=== PATIENT | female | born 1970 | race Caucasian/White ===

== ENCOUNTER 2017-01-18 10:00 | Inpatient (IN) | payer OTHER ==
[~2017-01-18] VITALS: Ht 167.6 cm; Wt 81.6 kg
--- NOTE | ~2017-01-18 | PN ---
Unit #: [id number] #: [id number] Patient: KAN SALCIDO [id number] [facility] [address] [place] [address] [id number] MR#: [id number] NAME: KAN SALCIDO ROOM: [facility] [place] Age: 46 Sex: F Admission Date: 01/18/2017 : 1970 Attending Physician: Mitchell Farley M.D. Admitting Physician: Mitchell Farley M.D. Primary Care Physician: Generic Doctor Not In System [facility] PROGRESS NOTES DATE 01/20/2017 DISCUSSION Ms. Salcido is a 46-year-old white female who was seen today and chart was reviewed and case was discussed with the staff. She has been anxious, withdrawn and rather seclusive to herself. Meanwhile, she has been cooperative with treatment recommendations and has been taking medications and tolerating them fairly well with no reported side effects. MENTAL STATUS EXAMINATION Middle-aged white female who was casually dressed with fair personal hygiene and appears to be in no acute distress or discomfort. She was awake and alert with impaired attention and concentration. Her mood was anxious with congruent affect. Her speech is slow and restricted in content. She denies any suicidal or homicidal ideation and also denies any auditory or visual hallucinations. Her insight and judgement remains slightly impaired. TREATMENT PLAN 1. Will continue on current medications and treatment protocol. Will monitor her response and make further adjustments as needed. 2. Will continue to follow up. Dictated by... Nishi Ventura/stewart TD: 01/20/2017 16:04 JOB #: [id number] Unit #: [id number] #: [id number] Patient: KAN SALCIDO PROGRESS NOTES Page 1 of 1 X Mitchell Farley MD PROGRESS NOTE
--- NOTE | ~2017-01-18 | HP ---
Unit #: [id number] #: [id number] Patient: NAKIA SALCIDO [id number] [place] [address] [id number] I MR#: [id number] NAME: NAKIA SALCIDO ROOM: 61 Age: 46 Sex: F Admission Date: 01/18/2017 : 1970 Attending Physician: Mitchell Farley M.D. Admitting Physician: Mitchell Farley M.D. Primary Care Physician: Generic Doctor Not In System HISTORY AND PHYSICAL HISTORY OF PRESENT ILLNESS Nakia is a 46 year old admitted to [facility] with depression verbalizing wanting to hurt herself. PAST MEDICAL HISTORY 1. 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 She has been clean for some months. 2. Hepatitis C. 3. High blood pressure. 4. Obesity. PAST SURGICAL HISTORY Tubal ligation. ALLERGIES No known drug allergies. SOCIAL HISTORY Smokes one-half packs per day. Denies alcohol. Admits to a history of illicit substance abuse to include IV heroin, meth and spice. FAMILY HISTORY Medically noncontributory. REVIEW OF SYSTEMS CONSTITUTIONAL: No fever or chills. HEENT: Denies any sore throat, ear pain or runny nose. CARDIOVASCULAR: Denies chest pain, irregular heart rhythm or palpitations. CHEST: Denies shortness of breath or cough. No hemoptysis. GASTROINTESTINAL: Denies nausea, vomiting, diarrhea or chronic constipation. ENDOCRINE: Denies history of increased thirst or urination. No recent significant weight loss or gain. GENITOURINARY: Denies dysuria, frequency, or hematuria. SKIN: Denies any rashes. HEMATOLOGIC: Denies history of increased bleeding or bruising. MUSCULOSKELETAL: Denies any hot, swollen joints. No generalized muscle pain. NEUROLOGIC: Denies problems with vision or speech. No frequent, severe headaches. No numbness, tingling or weakness in any extremities. Denies loss of bladder or bowel control. Unit #: [id number] #: [id number] Patient: NAKIA SALCIDO CURRENT MEDICATIONS 1. Protonix 40 mg daily 2. Seroquel 100 mg q h.s. 3. Catapres 0.1 mg b.i.d. 4. Klonopin 0.25 mg b.i.d. 5. Milk of Magnesia p.r.n. 6. Maalox p.r.n. 7. Tylenol p.r.n. 8. Neurontin 800 mg t.i.d. 9. Nicotine patch 14 mg q day 10. Prozac 20 mg q day PHYSICAL EXAMINATION GENERAL: Alert, obese, in no apparent distress. VITAL SIGNS: Blood pressure 124/74, heart rate 80, respirations 16, temperature 98.6. WEIGHT: 200 pounds. HEIGHT: 5'8". SKIN: Warm and dry without rash or lesion. HEENT: Normocephalic. TMs not viewed. Oral and nasal passages clear. Conjunctivae clear. Pupils equal, round and reactive to light and accommodation. Extraocular movements intact. NECK: Supple without lymphadenopathy or thyromegaly. HEART: Regular rate and rhythm without murmur. LUNGS: Clear. ABDOMEN: Soft, nontender. : Not done. EXTREMITIES: No evidence of cyanosis, clubbing or edema. Moves all extremities without focal deficit. NEUROLOGICAL: Grossly within normal limits. Cranial Nerves: II: Visual locke are intact. III, IV AND : Extraocular movements are intact. Pupils are equal, round and reactive to light. V: Facial sensation is grossly normal. VII: Facial movements and expression are normal. VIII: Auditory acuity grossly intact. IX, X: Uvula is midline. Phonation is normal. XI: Patient shrugs shoulders and turns head normally. XII: Tongue protrudes in the midline. Sensory and Motor Function: Sensory and motor sensation is grossly normal. Motor: moves all extremities well. Coordination: Gait is normal. Deep Tendon Reflexes: Intact. IMPRESSION Psychiatric admission RECOMMENDATIONS PSYCHIATRIC: Per psychiatrist. MEDICAL: I see no contraindications to participating in facility's activities. MEDICAL PROGNOSIS Good. MEDICAL CONDITION Stable. Unit #: [id number] #: [id number] Patient: NAKIA SALCIDO Dictated by... Mary Cooper P.A.-C. for Nishi Fernandes/farhad TD: 01/18/2017 22:32 JOB #: [id number] HISTORY AND PHYSICAL Page 1 of 1 X Mary Cooper HISTORY AND PHYSICAL
--- NOTE | ~2017-01-18 | PA ---
Unit #: [id number] #: [id number] Patient: [facility]CIDO [id number] [facility] [address] [place] [address] [id number] I MR#: [id number] NAME: KAN SALCIDO ROOM: P261 Age: 46 Sex: F Admission Date: 01/18/2017 : 1970 Date of Assessment: 01/18/2017 Attending Physician: Mitchell Farley M.D. Admitting Physician: Mitchell Farley M.D. Primary Care Physician: Generic Doctor Not In System PSYCHIATRIC ASSESSMENT DATE OF SERVICE 01/18/2017. IDENTIFYING DATA Ms. Salcido is a 46-year-old single white female, who is a resident of [place], [place], and was transferred to from [facility] Emergency Room. CHIEF COMPLAINT "Suicidal thoughts." HISTORY OF PRESENT ILLNESS Ms. Salcido is a 46-year-old white female, who presented to the [facility] Emergency Room, stating that she has been staying at a [facility] and she has been trying to leave, but they would not let her leave and the facility will call places where she is staying and get her in trouble and the patient reports history of mental health issues and has long history of chemical dependency issues and has [facility] and refuses to follow up with any treatment program and usually is seeking pain medication and reports she does not have a family doctor or a pain doctor, but that she has been going to emergency room and getting Lortab and that she came to the ER because she was exhausted and that she told the ER staff that she wanted to kill herself, but she stated that she now feels fine. She was seen to be quite attention seeking, histrionic, and overall poor historian and reports that she has attempted suicide twice in her life with the last time back in 2000 and that is when she overdosed on pills and cut her wrist. She does report feelings of hopelessness and helplessness, and suicidal ideation and as such, recommendation for inpatient level of care for safety and stabilization was made and the patient was transferred to us. SUBSTANCE ABUSE HISTORY The patient reports history of cocaine and amphetamine and opioid abuse, and has been currently seeking opioids from different providers and locations, particularly going to the emergency room. PAST PSYCHIATRIC HISTORY The patient has had history of multiple inpatient psychiatric hospitalizations at [facility] and has been diagnosed and treated for mood disorder and supposed to be on Seroquel and Prozac, though it is not clear if she has been compliant with medications as she does not have an outpatient provider. Unit #: [id number] #: [id number] Patient: KAN SALCIDO PAST MEDICAL HISTORY No acute or chronic medical illnesses. ALLERGIES No known medication allergies. PERSONAL AND SOCIAL HISTORY A 46-year-old white female, who reports that she is single, unemployed, and essentially homeless and has been staying at a [facility] house. MENTAL STATUS EXAMINATION Middle-aged white female who was casually dressed with fair personal hygiene, appears to be in no acute distress or discomfort. She was awake and alert on interaction with intact orientation to time, place, and person. Her mood was anxious and depressed with a congruent affect. Her speech was slow and restricted in content. Her thought processes were disorganized with looseness of associations and flight of ideas. Her insight and judgment remain significantly impaired. DIAGNOSTIC IMPRESSION Psychiatric: Major depressive disorder, recurrent, moderate, without psychotic features. Medical: None. Stressors: Moderate psychosocial stressors. TREATMENT PLAN 1. The patient has presented with history of mood disorder, and has been decompensating and will need inpatient hospitalization for safety and stabilization. We will start her back on her home medications. We will adjust the medications and monitor response. 2. Supportive therapy was provided to the patient. 3. Safe, structured, and nourishing environment will be provided. ESTIMATED LENGTH OF STAY 5 to 7 days. ABILITY TO HELP SELF Limited. WILLINGNESS TO HELP SELF The patient appears to be willing to help self. STRENGTHS 1. Communicative. 2. Cooperative. PROBLEMS 1. Chronic dysphoric symptoms. 2. Poor social support system. DISCHARGE CRITERIA This will be contingent upon the patient's ability to show resolution of her depression and anxiety and her ability to stay safe to herself, particularly after discharge from the hospital. Dictated by... Unit #: [id number] #: [id number] Patient: KAN SALCIDO Nishi Ventura/zach TD: 01/20/2017 01:48 JOB #: [id number] PSYCHIATRIC ASSESSMENT Page 1 of 1 X Mitchell Farley MD PSYCHIATRIC ASSESSMENT
--- NOTE | ~2017-01-18 | DS ---
Unit #: [id number] #: [id number] Patient: KAN SALCIDO [id number] [facility] [place] [address] [id number] I MR#: [id number] NAME: KAN SALCIDO ROOM: 61 Age: 46 Sex: F Admission Date: 01/18/2017 : 1970 Discharge Date: 01/21/2017 Attending Physician: Mitchell Farley M.D. DISCHARGE SUMMARY IDENTIFYING DATA Ms. Salcido is a 46-year-old single white female, who is a resident of [place], [place], and was transferred to us from [facility] with chief complaint of suicidal thoughts. DISCHARGE DIAGNOSES Psychiatric major depressive disorder, recurrent, moderate, without psychotic features. Medical; none. Stressors; Moderate to psychosocial stressors. HISTORY OF PRESENT ILLNESS Please see initial psychiatric evaluation for details. PAST PSYCHIATRIC HISTORY Please see initial psychiatric evaluation for details. PAST MEDICAL HISTORY Please see initial psychiatric evaluation for details. HOSPITAL COURSE The patient [facility] and was oriented to the hospital environment. Routine p.r.n. medications were initiated and upon initial presentation, she was seen to be very agitated, irritable, strongly has been trying to mask and minimize her presentation, refusing to stay in treatment and wanting to side out and was not actively participating in treatment although seen to be intimidating and using verbally abusive language and was hostile and irritable; however, medications were started back and she was encouraged to participate in therapy groups and she was slowly able to calm herself down and then was apologetic of her attitude from before and was denying any suicidal ideations, intent, or plan and was willing to continue treatment with intensive outpatient [facility] and as such, it was decided that she will be discharged home and will continue treatment on an outpatient basis. DISCHARGE MEDICATIONS Prozac 20 mg a day for depression, Catapres 0.1 mg b.i.d. for anxiety, Seroquel 100 mg at bedtime for depression, Neurontin 800 mg t.i.d. for anxiety. DISCHARGE CONDITION Unit #: [id number] #: [id number] Patient: KAN SALCIDO Stable. PROGNOSIS Fair. Dictated by... Nishi Ventura/zach TD: 01/22/2017 11:20 JOB #: [id number] DISCHARGE SUMMARY Page 1 of 1 X Mitchell Farley MD DISCHARGE SUMMARY
[2017-01-19 09:56] LABS: URINE APPEARANCE CLEAR; URINE BILIRUBIN NEG (NEG); URINE BLOOD TRACE (NEG); URINE COLOR YELLOW; URINE GLUCOSE NEG (NEG); URINE KETONE NEG (NEG); URINE LEUKOCYTE ESTERASE TRACE (NEG); URINE NITRATE NEG (NEG); URINE PROTEIN NEG (NEG); URINE SPECIFIC GRAVITY 1.007 (1.003-1.035); URINE UROBILINOGEN 0.2 MG/DL (NEG)
[2017-01-19 10:01] LABS: URBCS1 AUWI 0-2 /[HPF] (0-2); URINE BACTERIA AUWI NEG (NEGATIVE); URINE SQUAMOUS EPITHELIAL CELL OCC /[HPF]; UWBCS1 AUWI 0-2 (0-5)
== END 2017-01-21 12:45 | disposition home or self-care (01) | DRG 885 ==
LOC: P2L 13:39
PROVIDERS: Psychiatry & Neurology Psychiatry
DX: F33.1 Major depressive disorder, recurrent, moderate (principal); R45.851 Suicidal ideations; Z59.0 Homelessness; Z86.19 Personal history of other infectious and parasitic diseases; Z98.51 Tubal ligation status; F17.210 Nicotine dependence, cigarettes, uncomplicated
CPT/HCPCS: 81003; 84703

== ENCOUNTER 2017-02-21 14:53 | Inpatient (IN) | payer OTHER ==
[~2017-02-21] VITALS: Ht 172.7 cm; Wt 81.6 kg
--- NOTE | ~2017-02-21 | PN ---
Unit #: [id number] #: [id number] Patient: KAN SALCIDO [id number] [facility] [address] [place] [address] [id number] I MR#: [id number] NAME: KAN SALCIDO ROOM: [facility] Age: 46 Sex: F Admission Date: 02/21/2017 : 1970 Attending Physician: Mitchell Farley M.D. Admitting Physician: Mitchell Farley M.D. Primary Care Physician: Generic Doctor Not In System [facility] PROGRESS NOTES DATE OF SERVICE 02/24/2017 DISCUSSION Ms. Salcido is a 46-year-old white female with mood disorder and psychosis who was seen today. Chart was reviewed and case was discussed with the staff. She has been anxious and had a rough day yesterday with acute psychotic (1) __. Staff called me stating that the patient was getting delusional, agitated, and hostile and had to be moved to a different floor and has been transferred to private video-monitored room. She continues to (2) __ bizarre behavior and believed that she is leaving today and appears to be quite unstable at this time. MENTAL STATUS EXAMINATION Middle-aged white female who is casually dressed with fair personal hygiene, appears to be in no acute distress or discomfort. She was awake and alert with impaired attention and concentration. Her mood is anxious with congruent affect. Her speech is slow and tangential. Thought processes were disorganized with some looseness of associations and flight of ideas. Her insight and judgment remain significantly impaired. TREATMENT PLAN 1. We will continue her on her current medications and treatment protocol. We will monitor her response to medications and make further adjustments as needed. 2. We will continue to follow up. Dictated by... Mitchell Farley M.D. IAA/bzg TD: 02/24/2017 08:41 JOB #: [id number] Unit #: [id number] #: [id number] Patient: KAN SALCIDO PROGRESS NOTES Page 1 of 1 X Mitchell Farley MD X PROGRESS NOTE
--- NOTE | ~2017-02-21 | HP ---
Unit #: [id number] #: [id number] Patient: KAN SALCIDO [id number] [facility] [address] [place] [address] [id number] I MR#: [id number] NAME: KAN SALCIDO ROOM: [facility] Age: 46 Sex: F Admission Date: 02/21/2017 : 1970 Attending Physician: Mitchell Farley M.D. Admitting Physician: Mitchell Farley M.D. Primary Care Physician: Generic Doctor Not In System HISTORY AND PHYSICAL HISTORY OF PRESENT ILLNESS The patient is a 46-year-old female who has been [facility] ideation and detox. PAST MEDICAL HISTORY 1. Chronic back pain. 2. Chronic sciatica. 3. GERD. 4. Hepatitis C. 5. Hypertension. 6. Withdrawal seizures. PAST SURGICAL HISTORY Tubal ligation. ALLERGIES No known allergies. SOCIAL HISTORY Patient endorses tobacco and endorses polysubstance abuse including IV heroin, meth and spice. She denies any alcohol use. FAMILY HISTORY Medically noncontributory. REVIEW OF SYSTEMS CONSTITUTIONAL: Patient denies fever or chills. HEENT: Denies sore throat, ear pain or runny nose. CARDIOVASCULAR: Denies chest pain, irregular heart rhythm or palpitations. CHEST: Denies shortness of breath or cough. No hemoptysis. GASTROINTESTINAL: Denies nausea, vomiting, diarrhea or chronic constipation. ENDOCRINE: Denies increased thirst or urination. Denies recent weight loss or gain. GENITOURINARY: Denies frequency, or hematuria. SKIN: Denies rashes. HEMATOLOGIC: Denies increased bleeding or bruising. MUSCULOSKELETAL: Denies hot, swollen joints. No generalized muscle pain. NEUROLOGIC: Denies problems with speech, vision, numbness, tingling. Denies loss of bowel or bladder control. HOME MEDICATIONS 1. Seroquel 100 mg p.o. at night. Unit #: [id number] #: [id number] Patient: KAN SALCIDO 2. Neurontin 800 mg p.o. t.i.d. 3. Prozac 20 mg p.o. daily. 4. Clonidine 0.1 mg p.o. b.i.d. 5. Protonix 40 mg p.o. daily. PHYSICAL EXAMINATION GENERAL: She is awake, alert, in no acute distress. VITAL SIGNS: Temperature 98.3, heart rate 74, respirations 16, blood pressure 139/96. HEIGHT: 5 feet 8. WEIGHT: 180 pounds. HEENT: Head is atraumatic, normocephalic. Pupils equal, round and reactive. Extraocular movements are intact. No drainage from ears or nares. NECK: Supple. Trachea is midline. HEART: Regular rate and rhythm. LUNGS: Clear. ABDOMEN: Soft, nontender, nondistended. : Not done. SKIN: Warm, dry without any unusual rashes or lesions. EXTREMITIES: No clubbing, edema or cyanosis. NEUROLOGICAL: Cranial nerves II through XII intact. No focal deficits. Sensory and motor functioning grossly normal. Moves all extremities well. Coordination, gait normal. Deep tendon reflexes intact. IMPRESSION Psychiatric admission. RECOMMENDATIONS PSYCHIATRIC: Will be per psychiatry. MEDICAL: I see no contraindication to participate in facility's activities. MEDICAL PROGNOSIS Fair. MEDICAL CONDITION Stable. Dictated by... Omaira Velazquez A.P.R.N. for Harriett Gomez M.D. AM/stewart TD: 02/22/2017 17:39 JOB #: [id number] Unit #: [id number] #: [id number] Patient: KAN SALCIDO HISTORY AND PHYSICAL Page 1 of 1 X Omaira Velazquez [employer] X HISTORY AND PHYSICAL
--- NOTE | ~2017-02-21 | PA ---
Unit #: [id number] #: [id number] Patient: KAN SALCIDO [id number] [facility] [address] [place] [address] [id number] I MR#: [id number] NAME: KAN SALCIDO ROOM: P205 Age: 46 Sex: F Admission Date: 02/21/2017 : 1970 Date of Assessment: 02/22/2017 Attending Physician: Mitchell Farley M.D. Admitting Physician: Mitchell Farley M.D. Primary Care Physician: Generic Doctor Not In System PSYCHIATRIC ASSESSMENT DATE OF SERVICE 02/22/2017 IDENTIFYING DATA Ms. Salcido is a 46-year-old single white female, who is a resident of [place], [place], and is very well known to us from previous multiple encounters and was transferred back to us from [facility] Emergency Room where she brought herself on a voluntary basis. CHIEF COMPLAINT "I want to kill myself." HISTORY OF PRESENT ILLNESS Ms. Salcido is a 46-year-old white female with a history of mood disorder and substance abuse, who has been a frequent flyer to inpatient hospitalizations, and each time she comes in, she shows a very negative attitude, and pushes and wants to leave as soon as she starts feeling better and does not invest in treatment at all and then refuses to cooperate with any treatment recommendations outside of the hospital and usually ends up leaving on a negative note. However, she took herself back to the emergency room at [facility] after she was under my care last month and told me during that time that I would never see her back in the hospital and that she is just ready to sign herself out. However, at this time, she presented to the emergency room stating that she relapsed a little over a week ago and "It's like I can't stop using. People don't seem to think I deserve help. But then, I'm serious when I say I want to stop because I can't stop using." The patient reports that she is addicted to spice and before she continues chasing this addiction, she will run into traffic or whatever else she has to do to stop feeling the way she is feeling. The patient reports " I can't do this anymore. I can't tell things and I don't deserve to live." She does endorse increasing depression, anxiety, feelings of hopelessness and helplessness, and suicidal ideation with intent and plan, and as such, recommendation for inpatient level of care for safety and stabilization was made and the patient was transferred to us. SUBSTANCE ABUSE HISTORY The patient reports a history of cocaine and amphetamines and synthetic drug abuse, and more recently, appears that synthetic spice has been her drug of choice. PAST PSYCHIATRIC HISTORY The patient has had a history of multiple inpatient psychiatric Unit #: [id number] #: [id number] Patient: KAN SALCIDO hospitalizations at [facility] and has been diagnosed and treated for mood disorder on the line of bipolar, and review of the medical records indicates that she is supposed to be on Seroquel and Prozac, but does not appear to be compliant with the medication as she is not active with any ongoing outpatient psychiatric treatment, is not seeing a psychiatrist, and is not taking any psychotropic medications. PAST MEDICAL HISTORY The patient's medical history is insignificant. ALLERGIES No known medication allergies. PERSONAL AND SOCIAL HISTORY A 46-year-old white female, who reports that she is single, unemployed and lives alone, and has poor social support system. MENTAL STATUS EXAMINATION A middle-aged white female, who was casually dressed with a fair personal hygiene and appears to be in no acute distress or discomfort. She was awake and alert on interaction with intact orientation to time, place, and person. Her mood was anxious and depressed with a congruent affect. Her speech is slow and restricted in content. Her thought processes were disorganized with some looseness of associations and suicidal ideations. Her insight and judgment remain significantly impaired. DIAGNOSTIC IMPRESSION Psychiatric: Bipolar disorder, most recent episode depressed, recurrent, moderate, without psychotic features. Cocaine dependence, moderate. Cannabis dependence, moderate. Medical: None. Stressors: Moderate psychosocial stressors. TREATMENT PLAN 1. The patient has presented with a history of substance abuse and mood disorder. We will recommend inpatient hospitalization for safety and stabilization. We will start her back on her home medications including her Prozac and Seroquel. We will monitor her response to the medications and make further adjustments as needed. 2. Supportive therapy was provided to the patient. 3. Safe, structured, and nourishing environment will be provided. ESTIMATED LENGTH OF STAY 5 to 7 days. ABILITY TO HELP SELF Limited. WILLINGNESS TO HELP SELF The patient appears to be willing to help self. STRENGTHS 1. Communicative. 2. Cooperative. PROBLEMS Unit #: [id number] #: [id number] Patient: KAN SALCIDO 1. Chronic dysphoric symptoms. 2. Poor social support system. DISCHARGE CRITERIA This will be contingent upon the patient's ability to show resolution of her depression and anxiety, and her ability to stay safe to herself, particularly after discharge from the hospital. Dictated by... Mitchell Farley M.D. CHUCHO/zach TD: 02/22/2017 07:39 JOB #: [id number] PSYCHIATRIC ASSESSMENT Page 1 of 1 X Mitchell Farley MD X PSYCHIATRIC ASSESSMENT
--- NOTE | ~2017-02-21 | PN ---
Unit #: [id number] #: [id number] Patient: KAN SALCIDO [id number] [facility] [address] [place] [address] [id number] MR#: [id number] NAME: KAN SALCIDO ROOM: 16 Age: 46 Sex: F Admission Date: 02/21/2017 : 1970 Attending Physician: Mitchell Farley M.D. Admitting Physician: Mitchell Farley M.D. Primary Care Physician: Generic Doctor Not In System [facility] PROGRESS NOTES DATE OF SERVICE: 02/26/2017 SUBJECTIVE Ms. Salcido is a 60-amol-geznt female, who was seen today and chart was reviewed, and case was discussed with the staff. She has been anxious, irritable, impulsive, and rather seclusive to herself. Meanwhile, she has been cooperative with treatment recommendations and has been taking medications and tolerating them fairly well with no reported side effects. MENTAL STATUS EXAMINATION Middle-aged white female who was casually dressed with fair personal hygiene, appears to be in no acute distress or discomfort. She was awake and alert with intact orientation. Her mood was anxious with a congruent affect. She denies any suicidal or homicidal ideation. Her insight and judgment remain slightly impaired. TREATMENT PLAN 1. We will continue on her current medications and treatment protocol. We will monitor her response to medications and make further adjustments as needed. 2. We will continue to follow up. Dictated by... Nishi Ventura/zach TD: 02/28/2017 01:10 JOB #: [id number] [facility] PROGRESS NOTES Page 1 of 1 X Mitchell Farley MD PROGRESS NOTE
--- NOTE | ~2017-02-21 | DS ---
Unit #: [id number] #: [id number] Patient: KAN SALCIDO [id number] [facility] [address] [place] [address] [id number] MR#: [id number] NAME: KAN SALCIDO ROOM: P116 Age: 46 Sex: F Admission Date: 02/21/2017 : 1970 Discharge Date: 02/27/2017 Attending Physician: Mitchell Farley M.D. Primary Care Physician: Generic Doctor Not In System DISCHARGE SUMMARY IDENTIFYING DATA Ms. Salcido is a 46-year-old single white female, who is a resident of [place], [place], and is very well known to us from previous multiple encounters and was transferred to us from [facility] Emergency Room, where she was brought on a voluntary basis. CHIEF COMPLAINT "I want to kill myself." DISCHARGE DIAGNOSES Psychiatric: Bipolar disorder, most recent episode depressed, recurrent, moderate, without psychotic features; cocaine dependence, moderate; cannabis dependence, moderate. Medical: None. Stressors: Moderate psychosocial stressors. HISTORY OF PRESENT ILLNESS Ms. Salcido is a 46-year-old white female with a history of mood disorder and substance abuse, who has been a frequent flyer to inpatient hospitalizations, and each time she comes in, she shows a very negative attitude, and pushes and wants to leave as soon as she starts feeling better and does not invest in treatment at all and then refuses to cooperate with any treatment recommendations outside of the hospital and usually ends up leaving on a negative note. However, she took herself back to the emergency room at [facility] after she was under my care last month and told me during that time that I would never see her back in the hospital and that she is just ready to sign herself out. However, at this time, she presented to the emergency room stating that she relapsed a little over a week ago and "It's like I can't stop using. People don't seem to think I deserve help. But then, I'm serious when I say I want to stop because I can't stop using." The patient reports that she is addicted to spice and before she continues chasing this addiction, she will run into traffic or whatever else she has to do to stop feeling the way she is feeling. The patient reports " I can't do this anymore. I can't tell things and I don't deserve to live." She does endorse increasing depression, anxiety, feelings of hopelessness and helplessness, and suicidal ideation with intent and plan, and as such, recommendation for inpatient level of care for safety and stabilization was made and the patient was transferred to us. PAST PSYCHIATRIC HISTORY The patient has had a history of multiple inpatient psychiatric hospitalizations at [facility] and has been diagnosed and treated for mood disorder on the line of bipolar, and review of the medical Unit #: [id number] #: [id number] Patient: KAN SALCIDO records indicates that she is supposed to be on Seroquel and Prozac, but does not appear to be compliant with the medication as she is not active with any ongoing outpatient psychiatric treatment, is not seeing a psychiatrist, and is not taking any psychotropic medications. PAST MEDICAL HISTORY The patient's medical history is insignificant. HOSPITAL COURSE The patient was admitted to the adult psychiatric unit and chemical dependency unit at [facility] and was oriented to the hospital environment. Routine p.r.n. medications were initiated, and she was started back on her home medications and medications were adjusted and she was closely monitored. She was taking medications regularly and was tolerating them fairly well and was able to show a decent therapeutic response and was wanting to continue treatment on an outpatient basis and as such, it was decided that she will be kept on her current medications and will be discharged home. DISCHARGE MEDICATIONS 1. Seroquel 100 mg at bedtime for bipolar. 2. Protonix 40 mg a day for acid reflux. 3. Neurontin 800 mg t.i.d. for neuropathy. 4. Catapres 0.1 mg b.i.d. for hypertension. DISCHARGE CONDITION Stable. PROGNOSIS Fair. Dictated by... Nishi Ventura/zach TD: 02/27/2017 07:05 JOB #: [id number] DISCHARGE SUMMARY Page 1 of 1 X Mitchell Farley MD X DISCHARGE SUMMARY
--- NOTE | ~2017-02-21 | PN ---
Unit #: [id number] #: [id number] Patient: KAN SALCIDO [id number] [facility] [address] [place] [address] [id number] MR#: [id number] NAME: KAN SALCIDO ROOM: 16 Age: 46 Sex: F Admission Date: 02/21/2017 : 1970 Attending Physician: Mitchell Farley M.D. Admitting Physician: Mitchell Farley M.D. Primary Care Physician: Generic Doctor Not In System [facility] PROGRESS NOTES DATE OF SERVICE: 02/25/2017 Mr. Salcido is a 46-year-old white female, who is seen today and chart was reviewed, and case was discussed with the staff. She was seen to be agitated, irritable, and in a dysphoric mood and just walked away and went to her into her room and presumably slammed the door really hard and it appears that she once again has been starting to show poor insight into her situation, poor motivation towards treatment, which has the hallmark of her presentation as always and has into poor prognosis. She promised this time that if we let her come in to the program, she will do whatever we wanted and will show better motivation towards treatment. It appears that she to her previous level of functioning and, as such, we will continue to monitor treatment and make adjustments as needed. Dictated by... Nishi Ventura/zach TD: 02/26/2017 04:27 JOB #: [id number] [facility] PROGRESS NOTES Page 1 of 1 X Mitchell Farley MD PROGRESS NOTE
--- NOTE | ~2017-02-21 | PN ---
Unit #: [id number] #: [id number] Patient: KAN SALCIDO [id number] [facility] [address] [place] [address] [id number] I MR#: [id number] NAME: KAN SALCIDO ROOM: [facility] Age: 46 Sex: F Admission Date: 02/21/2017 : 1970 Attending Physician: Mitchell Farley M.D. Admitting Physician: Mitchell Farley M.D. Primary Care Physician: Generic Doctor Not In System [facility] PROGRESS NOTES DATE OF SERVICE 02/23/2017 DISCUSSION Ms. Salcido is a 46-year-old white female who was seen today. Chart was reviewed and case was discussed with the staff. She has been anxious, withdrawn, and rather seclusive to herself. Meanwhile, she has been cooperative with the treatment recommendations and has been taking the medications and tolerating them fairly well with no reported side effects. MENTAL STATUS EXAMINATION Middle-aged white female who is casually dressed with fair personal hygiene, appears to be in no acute distress or discomfort. The patient was awake and alert with intact orientation. Her mood is anxious with congruent affect. She denies any suicidal or homicidal ideations. Her insight and judgment remain slightly impaired. TREATMENT PLAN 1. We will continue her on her current medications and treatment protocol. We will monitor her response to the medications and make further adjustments as needed. 2. We will continue to follow up. Dictated by... Mitchell Farley M.D. IAA/bzg TD: 02/23/2017 12:42 JOB #: [id number] Unit #: [id number] #: [id number] Patient: KAN SALCIDO [facility] PROGRESS NOTES Page 1 of 1 X Mitchell Farley MD PROGRESS NOTE
[2017-02-22 09:39] LABS: BASOPHIL% 0.6 % (0-2.5); EOSINOPHIL# 0.1 X10e3 (0-0.7); EOSINOPHIL% 1.6 % (0.0-7.0); HEMATOCRIT 42.7 % (35.0-45.0); HEMOGLOBIN 13.9 gm/dL (12.0-16.0); LYMPHOCYTE# 2.2 X10e3 (1.0-3.5); LYMPHOCYTE% 32.5 % (17.0-45.0); MEAN CELL VOLUME 87.9 FL (83-96); MEAN CORPUSCULAR HEMOGLOBIN 28.6 PG (28-34); MEAN CORPUSCULAR HGB CONC 32.6 g/dL (30-36); MEAN PLATELET VOLUME 9.6 FL (6.5-11.5); MONOCYTE# 0.5 X10e3 (0-1.0); MONOCYTE% 7.5 % (3.0-12.0); NEUTROPHIL# 3.9 X10e3 (1.5-7.1); NEUTROPHIL% 57.8 % (40-75); PLATELET COUNT 178 X10e3 (140-420); RED BLOOD COUNT 4.86 X10e (3.90-5.30); RED CELL DISTRIBUTION WIDTH 15.6 % (11.0-15.5); WHITE BLOOD COUNT 6.7 X10e3 (4.0-10.5)
[2017-02-22 09:57] LABS: DIFF IND NO
[2017-02-22 09:58] LABS: ALBUMIN SERUM 3.5 g/dL (3.5-5.0); BILIRUBIN,TOTAL 0.6 mg/dL (0.2-2.0); BUN/CREATININE RATIO 16.25; CALCIUM SERUM 9.1 mg/dL (8.4-10.2); CREATININE SERUM 0.8 mg/dL (0.6-1.4); GLOM FILT RATE Estimated 87.3 mL/min (>60); POTASSIUM 4.4 mmol/L (3.5-5.1); PROTEIN TOTAL SERUM 6.2 g/dL (6.0-8.3)
[2017-02-22 12:24] LABS: URINE APPEARANCE CLOUDY; URINE BILIRUBIN NEG (NEG); URINE BLOOD NEG (NEG); URINE COLOR DK YELLOW; URINE GLUCOSE NEG (NEG); URINE KETONE NEG (NEG); URINE LEUKOCYTE ESTERASE TRACE (NEG); URINE NITRATE NEG (NEG); URINE PH 6.5 (5-8); URINE PROTEIN TRACE (NEG); URINE SPECIFIC GRAVITY 1.028 (1.003-1.035)
== END 2017-02-27 09:10 | disposition home or self-care (01) | DRG 885 ==
LOC: P2S 18:14 → P1S 18:14
PROVIDERS: Psychiatry & Neurology Psychiatry
PROC: HZ2ZZZZ Detoxification Services for Substance Abuse Treatment (ICD-10-PCS; principal; 2017-02-22)
DX: F31.32 Bipolar disorder, current episode depressed, moderate (principal); F14.20 Cocaine dependence, uncomplicated; R45.851 Suicidal ideations; F12.20 Cannabis dependence, uncomplicated; K21.9 Gastro-esophageal reflux disease without esophagitis; I10 Essential (primary) hypertension; B19.20 Unspecified viral hepatitis C without hepatic coma; Z98.51 Tubal ligation status; M54.30 Sciatica, unspecified side
CPT/HCPCS: 80053; 81003; 84703; 85025